=== PATIENT | male | born 1965 | race Caucasian/White ===

== ENCOUNTER 2020-05-23 12:43 | Emergency (ER) | payer BC, OTHER ==
[~2020-05-23] VITALS: Ht 167.6 cm; Wt 90.0 kg
[2020-05-23 12:45] VITALS: BP 141/94
--- NOTE | 2020-05-23 13:33 | NUR ---
ALL RESULTS ARE BACK AT THIS TIME. CHART UP FOR RECHECK.
--- NOTE | 2020-05-23 14:11 | NUR ---
JIM WRAP APPLIED BY VICE PRESIDENT OF SOFTWARE ENGINEERING.
== END 2020-05-23 14:12 | disposition home or self-care (01) ==
LOC: ED 13:59
DX: S80.02XA Contusion of left knee, initial encounter (principal); I10 Essential (primary) hypertension; Z90.49 Acquired absence of other specified parts of digestive tract; V87.8XXA Person injured in other specified noncollision transport accidents involving motor vehicle (traffic), initial encounter; Y93.89 Activity, other specified; Y92.828 Other wilderness area as the place of occurrence of the external cause; Y99.8 Other external cause status
CPT/HCPCS: 99283